=== PATIENT | female | born 1965 | race Two or more races ===

== ENCOUNTER 2020-06-17 16:04 | Emergency (ER) | payer BC ==
--- NOTE | 2020-06-17 16:54 | ER Document Report ---
ED Medical Screen (RME) - General Chief Complaint: Headache Stated Complaint: HEAD PAIN,CONFUSION Time Seen by Provider: 06/17/20 16:51 Notes: HPI: 55-year-old female who is reasonably healthy presenting for intermittent episodes of aphasia and dyslexia over the last 3 months. Patient states that she has noticed almost daily episodes where she is trying to read and can see the words and understand the words but cannot speak them this may last for several minutes at a time. Not associated specifically with a headache blurred vision weakness numbness tingling in the extremities, chest pain shortness of breath. She currently has noticed some increasing headaches over the last week. She called her primary care provider who referred her to the emergency department for evaluation. PHYSICAL EXAMINATION: Patient is answering all questions appropriately speech does not appear to be slurred. There is no facial droop. She is moving all extremities equally I have greeted and performed a rapid initial assessment of this patient. A comprehensive ED assessment and evaluation of the patient, analysis of test results and completion of medical decision making process will be conducted by an additional ED providers. Please note that clinical decision making for this patient was made during the 2019 pandemic of novel coronavirus which caused a significant strain on the healthcare system including at this particular facility. Criteria for admission discharge and level of care decisions as well as treatment decisions have necessarily changed - Related Data Allergies/Adverse Reactions: indomethacin [From Indocin] Adverse Reaction (Verified 06/17/20 16:38) Past Medical History - Social History Frequency of alcohol use: Occasional Physical Exam - Vital signs Vitals: Temp Pulse Resp BP Pulse Ox 98.1 F 88 20 150/80 H 97 06/17/20 16:24 06/17/20 16:24 06/17/20 16:24 06/17/20 16:24 06/17/20 16:24 Course - Vital Signs Vital signs: Temp Pulse Resp BP Pulse Ox 98.1 F 88 20 150/80 H 97 06/17/20 16:24 06/17/20 16:24 06/17/20 16:24 06/17/20 16:24 06/17/20 16:24
[2020-06-17 17:34] LABS: ABSOLUTE EOSINOPHILS # (AUTO) 0.1 10^3/uL (0.0-0.6); ABSOLUTE MONOCYTES (AUTO) 0.4 10^3/uL (0.1-1.4); ABSOLUTE NEUT (AUTO) 5.5 10^3/uL (1.7-8.2); BASOPHILS % (AUTO) 0.4 % (0-2); EOSINOPHILS % (AUTO) 1.1 % (0-6); HEMATOCRIT 38.8 % (36.0-47.0); HEMOGLOBIN 13.3 g/dL (12.0-15.5); LYMPHOCYTES % (AUTO) 24.8 % (13-45); MEAN CORPUSCULAR HEMOGLOBIN 32.6 pg (27.0-33.4); MEAN CORPUSCULAR HGB CONC 34.2 g/dL (32.0-36.0); MEAN CORPUSCULAR VOLUME 95 fl (80-97); MONOCYTES % (AUTO) 5.2 % (3-13); PLATELET COUNT 314 10^3/uL (150-450); RED BLOOD COUNT 4.08 10^6/uL (3.72-5.28); RED CELL DISTRIBUTION WIDTH 12.9 % (11.5-14.0); SEGMENTED NEUTROPHILS % (AUTO) 68.5 % (42-78); TOTAL CELLS COUNTED % (AUTO) 100 %
--- NOTE | 2020-06-17 17:38 | RADIOLOGY REPORT (SQ) ---
EXAM DESCRIPTION: CT HEAD WITHOUT IMAGES COMPLETED DATE/TIME: 06/17/2020 2:20 pm REASON FOR STUDY: confusion COMPARISON: None. TECHNIQUE: Axial images acquired through the brain without intravenous contrast. Images reviewed wi th bone, brain and subdural windows. Additional sagittal and coronal reconstructions were generated. Images stored on PACS. All CT scanners at this facility use dose modulation, iterative reconstruction, and/or weight based d osing when appropriate to reduce radiation dose to as low as reasonably achievable (ALARA). [facility]: Dose Right [facility]: CareDose [facility]: Dose Right [facility]: Teradose 4D [facility]: Optiant RADIATION DOSE: CT Rad equipment meets quality standard of care and radiation dose reduction techniq ues were employed. CTDIvol: 53.2 mGy. DLP: 991 mGy-cm. mGy. LIMITATIONS: None. FINDINGS: VENTRICLES: Normal size and contour. CEREBRUM: No masses. No hemorrhage. No midline shift. No evidence for acute infarction. Normal gra y/white matter differentiation. No areas of low density in the white matter. CEREBELLUM: No masses. No hemorrhage. No alteration of density. No evidence for acute infarction. EXTRAAXIAL SPACES: No fluid collections. No masses. ORBITS AND GLOBE: No intra- or extraconal masses. Normal contour of globe without masses. CALVARIUM: No fracture. PARANASAL SINUSES: No fluid or mucosal thickening. SOFT TISSUES: No mass or hematoma. OTHER: No other significant finding. IMPRESSION: No acute intracranial abnormality on noncontrast CT. EVIDENCE OF ACUTE STROKE: NO. COMMENT: Quality ID # [id number]: Final reports with documentation of one or more dose reduction techniques (e.g., Automated exposure control, adjustment of the mA and/or kV according to patient size, use of iterative reconstruction technique) TECHNICAL DOCUMENTATION: JOB ID: [id number] 2010 [employer]- All Rights Reserved Reading location - IP/workstation name: [email or web address]
[2020-06-17 17:54] LABS: ALBUMIN 4.4 g/dL (3.5-5.0); ALKALINE PHOSPHATASE 79 U/L (38-126); ANION GAP 7 (5-19); ASPARTATE AMINO TRANSFERASE 23 U/L (14-36); BILIRUBIN,DIRECT 0.2 mg/dL (0.0-0.4); BILIRUBIN,TOTAL 0.4 mg/dL (0.2-1.3); BLOOD UREA NITROGEN 17 mg/dL (7-20); CALCIUM 9.8 mg/dL (8.4-10.2); CARBON DIOXIDE 29 mmol/L (22-30); CHLORIDE 106 mmol/L (98-107); GLUCOSE 95 mg/dL (75-110); POTASSIUM 4.2 mmol/L (3.6-5.0); TOTAL PROTEIN 7.9 g/dL (6.3-8.2)
--- NOTE | 2020-06-17 18:01 | RADIOLOGY REPORT (SQ) ---
EXAM DESCRIPTION: CHEST 2 VIEWS IMAGES COMPLETED DATE/TIME: 06/17/2020 2:10 pm REASON FOR STUDY: confusion COMPARISON: None. EXAM PARAMETERS: NUMBER OF VIEWS: two views TECHNIQUE: Digital Frontal and Lateral radiographic views of the chest acquired. RADIATION DOSE: NA LIMITATIONS: none FINDINGS: LUNGS AND PLEURA: No opacities, masses or pneumothorax. No pleural effusion. MEDIASTINUM AND HILAR STRUCTURES: No masses or contour abnormalities. HEART AND VASCULAR STRUCTURES: Heart normal size. No evidence for failure. BONES: No acute findings. HARDWARE: None in the chest. OTHER: No other significant finding. IMPRESSION: NO ACUTE RADIOGRAPHIC FINDING IN THE CHEST. TECHNICAL DOCUMENTATION: JOB ID: [id number] 2010 [employer]- All Rights Reserved Reading location - IP/workstation name: [email or web address]
[2020-06-17 18:49] LABS: APPEARANCE,URINE SLIGHTLY-CLOUDY; BILIRUBIN,URINE NEGATIVE (NEGATIVE); COLOR,URINE YELLOW; GLUCOSE, URINE NEGATIVE (NEGATIVE); KETONES,URINE NEGATIVE (NEGATIVE); LEUKOCYTE ESTERASE,URINE NEGATIVE (NEGATIVE); NITRITE,URINE NEGATIVE (NEGATIVE); PROTEIN,URINE NEGATIVE (NEGATIVE); URINE SPECIFIC GRAVITY 1.018; UROBILINOGEN,URINE NEGATIVE mg/dL (<2.0)
--- NOTE | 2020-06-17 19:23 | ER Document Report ---
ED General - General Chief Complaint: Headache Stated Complaint: HEAD PAIN,CONFUSION Time Seen by Provider: 06/17/20 16:51 Primary Care Provider: BENJAMIN MALAVE MD, PHD [Primary Care Provider] - Follow up as needed CLAIRE ENCINAS DO [ASSOCIATE] - Follow up as needed - [facility] Notes: 55-year-old female presents with intermittent episodes of feeling as if she cannot find the right words. Patient states that for the past 3 months she has had multiple occasions where she will be talking and cannot remember a word or feels like she cannot get the words out. This lasts for a few minutes and resolves. Patient states there have also been episodes where her or sister will say something to her and its as if she suddenly cannot understand what they are saying. Episodes do not occur daily, but do occur several times per week. Patient denies any previous history of stroke. She has no other associated weakness/numbness during these episodes. She states that she had addressed this with her POLYSOMNOGRAPHER a few months ago. She states that she was told that it could be changes related to menopause as she is also having some issues focusing and with her thought process. She states that she was prescribed an estrogen cream. Patient also states that she is concerned that potentially she may be developing frontal dementia. Her aunt who is only 8 years older than her was diagnosed with frontal dementia in her 50s. Patient also states that she felt an indentation in the back of her head about a week ago and it hurts when she pushes on the area. Patient also states that she has had multiple issues with her sinuses, has undergone multiple sinus surgeries and has had multiple episodes of impacted frontal sinuses, she is interested in establishing with an ENT down here. 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 - Related Data Allergies/Adverse Reactions: indomethacin [From Indocin] Adverse Reaction (Verified 06/17/20 16:38) Past Medical History - General Information source: Patient - Social History Smoking Status: Never Smoker Frequency of alcohol use: Occasional Family History: Other Review of Systems - Review of Systems Constitutional: No symptoms reported EENT: No symptoms reported Cardiovascular: No symptoms reported Respiratory: No symptoms reported Gastrointestinal: No symptoms reported Genitourinary: No symptoms reported Female Genitourinary: No symptoms reported Musculoskeletal: No symptoms reported Skin: No symptoms reported Hematologic/Lymphatic: No symptoms reported Neurological/Psychological: See HPI Physical Exam - Vital signs Vitals: Temp Pulse Resp BP Pulse Ox 98.1 F 88 20 150/80 H 97 06/17/20 16:24 06/17/20 16:24 06/17/20 16:24 06/17/20 16:24 06/17/20 16:24 - General General appearance: Appears well, Alert In distress: None - HEENT Head: Normocephalic, Atraumatic. No: Tenderness Extraocular movements intact: Yes Pupils: PERRL Mucous membranes: Moist Neck: Supple - Respiratory Breath sounds: Normal - Cardiovascular Rhythm: Regular Heart sounds: Normal auscultation - Abdominal Tenderness: Nontender - Extremities General upper extremity: Normal ROM General lower extremity: Normal ROM. No: Edema - Neurological Neuro grossly intact: Yes Cognition: Normal Orientation: AAOx4 Speech: Normal. No: Expressive aphasia, Receptive aphasia Cranial nerves: Normal Motor strength normal: LUE, RUE, LLE, RLE Additional motor exam normals: Equal manager air Sensory: Normal Notes: NIHSS 0 - Psychological Associated symptoms: Normal affect - Skin Skin Temperature: Warm Course - Re-evaluation Re-evalutation: 55-year-old female here with intermittent word finding difficulty ongoing for the past 3 months, also with some possible episodes of receptive issues as well. Patient also concerned she might be developing frontal dementia as there is a family history of this. On exam patient is well-appearing, hemodynamically stable. Face is symmetric and speech is clear, there is no appreciable receptive or expressive aphasia, cranial nerves are grossly intact, strength is 5/5 in the upper and lower extremities. I do not find any focal neuro deficits at this time. Through the triage process she had a laboratory evaluation done which was grossly unremarkable. She also had a head CT which was negative for acute finding. I discussed with her that potentially these episodes could be due to TIA, will obtain MRI to evaluate for acute and subacute areas of ischemia. Question if a potential deal myelination process is going on which will be seen on MRI as well. Discussed with patient that we cannot officially rule out dementia at this time and she will likely need to follow-up with neurology in the future. 06/17/20 21:26 MRI report is available. Per radiology it is negative for acute findings of infarct or demyelination process 06/17/20 21:31 Patient was updated on MRI report. She has had no episodes while in the emergency department and remains neurologically intact. We discussed the following with neurology given that she wants a full dementia evaluation. She also request clinic information for ENT, will provide contact information as well. Return precautions given, stable at time of discharge. - Vital Signs Vital signs: Temp Pulse Resp BP Pulse Ox 98.3 F 81 20 147/78 H 100 06/17/20 21:49 06/17/20 21:49 06/17/20 21:49 06/17/20 21:49 06/17/20 21:49 - Laboratory Results Result Diagrams: 06/17/20 16:57 06/17/20 16:57 Laboratory Results Interpreted: 06/17/20 16:57 Est GFR (MDRD) Non-Af 55 L Critical Laboratory Results Reviewed: No Critical Results - Radiology Results Critical Radiology Results Reviewed: No Critical Results Discharge - Discharge Clinical Impression: Word finding difficulty Disposition: HOME, SELF-CARE Additional Instructions: Please establish care with neurology to have a formal dementia evaluation. I have also provided contact information for ENT. Return to the emergency department for any concerning worsening symptoms. Referrals: BENJAMIN MALAVE MD, PHD [Primary Care Provider] - Follow up as needed CLAIRE ENCINAS DO [ASSOCIATE] - Follow up as needed
--- NOTE | 2020-06-17 20:51 | RADIOLOGY REPORT (SQ) ---
EXAM DESCRIPTION: MRI BRAIN WITHOUT INTRAVENOUS CONTRAST CLINICAL HISTORY: History of aphasia, confusion, speech deficit, headache and nausea. COMPARISON: CT head performed the same day. TECHNIQUE: MRI of the brain was performed without intravenous contrast, in a multiplanar/multisequence format. FINDINGS: There is no intracranial hemorrhage, midline shift, mass effect or acute focal infarct. There is a good zheng/white matter differentiation. Normal flow voids are seen in the intracranial arterial circulation. There is no visualization of a demyelination process. The ventricular system is normal. Limited evaluation of the pituitary fossa, bilateral cerebellopontine angles and bilateral IAC region appear unremarkable. IMPRESSION: Negative for acute findings on the noncontrast MRI of the brain.
[2020-06-17 21:57] VITALS: BP 147/78
--- NOTE | 2020-06-19 21:31 | EKG REPORT ---
SEVERITY:- NORMAL ECG - SINUS RHYTHM : Confirmed by: Naya Peng MD 19-Jun-2020 21:30:02
== END 2020-06-17 21:49 | disposition home or self-care (01) ==
LOC: ER 16:04
DX: R29.818 Other symptoms and signs involving the nervous system (principal); R41.0 Disorientation, unspecified; R51.9 Headache, unspecified; Z82.0 Family history of epilepsy and other diseases of the nervous system
CPT/HCPCS: 36415; 70450; 70551; 71046; 80053; 81001; 84484; 85025; 93005; 93010; 99285